=== PATIENT | female | born 1950 | race Hispanic/Latino ===

== ENCOUNTER → 2017-11-05 | Outpatient (CLI) | payer MEDICARE | END | disposition home or self-care (01) | LOC: RAH 15:53 | PROVIDERS: ATTEND Nurse Practitioner Family | DX: M79.641 Pain in right hand (principal); M25.551 Pain in right hip; M25.552 Pain in left hip | CPT/HCPCS: 73130; 73522 ==

== ENCOUNTER → 2018-12-07 | Outpatient (CLI) | payer MEDICARE | END | disposition home or self-care (01) | LOC: RAH 17:08 | PROVIDERS: ATTEND Nurse Practitioner Family | DX: M48.02 Spinal stenosis, cervical region (principal) | CPT/HCPCS: 72040 ==

== ENCOUNTER → 2020-10-19 | Outpatient (CLI) | payer MEDICARE | END | disposition home or self-care (01) | LOC: RAH 11:11 | PROVIDERS: ATTEND Internal Medicine | DX: I73.9 Peripheral vascular disease, unspecified (principal) | CPT/HCPCS: 93922 ==

== ENCOUNTER → 2020-10-24 | Outpatient (CLI) | payer MEDICARE | END | disposition home or self-care (01) | LOC: RAH 08:57 | PROVIDERS: ATTEND Internal Medicine | DX: R94.31 Abnormal electrocardiogram [ECG] [EKG] (principal) | CPT/HCPCS: 93306; 93356 ==

== ENCOUNTER 2021-03-13 12:57 | Emergency (ER) | payer MEDICARE ==
[~2021-03-13] VITALS: Ht 157.5 cm; Wt 78.5 kg
[2021-03-13 13:07] VITALS: BP 156/76
[2021-03-13] MEDS ORDERED: HYDROCODONE/ACETAMINOPHEN 10/325 MG TAB ONE (13:47)
[2021-03-13] MEDS ORDERED: INSULIN HUMULIN R 100 UNIT/ML 3ML ONE (13:48)
[2021-03-13] MEDS ORDERED: 0.9%NACL 1000ML 1,000 ML IV ONE ×2 (13:49→14:00)
[2021-03-13] MEDS ORDERED: INSULIN HUMULIN R 100 UNIT/ML 3ML SQ ONE (14:00)
[2021-03-13] MEDS ORDERED: HYDROCODONE/ACETAMINOPHEN 10/325 MG TAB PO ONE (14:00)
[2021-03-13] MEDS ORDERED: BUPIVACAINE/PF 0.5% 10ML VIAL IJ ONE (14:00)
[2021-03-13] MEDS ORDERED: FENTANYL 75 MCG/HR PATCH TD ONE (15:58)
[2021-03-13 16:48] VITALS: BP 159/89
[2021-03-13] MEDS ORDERED: FENTANYL 75 MCG/HR PATCH TD SCH (17:00)
== END 2021-03-13 16:52 | disposition home or self-care (01) ==
LOC: EDH 12:57
DX: M70.62 Trochanteric bursitis, left hip (principal); E11.65 Type 2 diabetes mellitus with hyperglycemia; E78.00 Pure hypercholesterolemia, unspecified; I10 Essential (primary) hypertension; I48.91 Unspecified atrial fibrillation; E66.9 Obesity, unspecified; Z68.31 Body mass index [BMI] 31.0-31.9, adult
CPT/HCPCS: 20610; 73502; 82948 ×2; 96361; 96374; 99283; J1815; J7030; 96360; J3490